=== PATIENT | male | born 1970 | race Caucasian/White ===

== ENCOUNTER 2022-11-18 19:12 | Emergency (ER) | payer OTHER, SELFPAY ==
[2022-11-18 19:16] VITALS: BP 134/96; PULSE 88; RESP 16; TEMP 36.6; O2SAT 97; BMI 28.1
--- NOTE | 2022-11-18 19:41 | ED.EYEPROB1 ---
HPI - Eye Problem General Chief complaint: Eye Problems Stated complaint: Foreign Body in Eye Time Seen by Provider: 11/18/22 19:40 Source: patient Mode of arrival: walk-in Limitations: no limitations History of Present Illness HPI Narrative: Patient is a 51-year-old male who presents to the emergency department for the evaluation of irritation in the left eye. He states approximately 1-1/2-2 hours ago, he got sawdust in his eye. They irrigated the eye but he still has a sensation of irritation. No visual loss. He does not wear contact lenses. states after irrigating his eye, he developed redness to the left outer aspect of the left eye. No drainage from the left eye. Related Data Previous Rx's Medication Instructions Recorded diclofenac sodium 0.1 % eye drops 2 drp ophthalmic (eye) Q6H PRN eye 11/18/22 pain 2 days #2.5 mL Allergies Allergy/AdvReac Type Severity Reaction Status Date / Time No Known Drug Allergies Allergy Verified 11/18/22 19:20 Review of Systems ROS Constitutional Denies: fever or chills Eyes Reports: eye discomfort; Denies: change in vision or eye discharge Cardiovascular Denies: chest pain Respiratory Denies: shortness of breath Gastrointestinal Denies: nausea or vomiting Musculoskeletal Denies: back pain Integumentary/Breast Denies: rash Neurological Denies: headache Exam Narrative Exam Narrative: Gen.: Awake, alert, in no distress Head: Normocephalic, atraumatic ENT: Moist mucous membranes Eye: Normal extraocular motion, pupils were equal round and reactive to light, the patient had no pain with extraocular motion. The patient had tetracaine applied to the bilateral eyes, fluorescein dye was instilled. There is a subconjunctival hemorrhage on the lateral aspect of the left eye, no extension over the iris. The patient had exam with Wood's lamp that did show evidence of uptake at the 6 o'clock position of the cornea. The patient had no involvement over the pupil. There was evidence of conjunctival injection. The patient's eyelid was everted and there was no evidence of foreign body. The patient had no swelling of the upper/lower eyelid. No evidence of hyphema, dendritic lesion or Yassine sign. No corneal ulcerations. No evidence of preseptal cellulitis or orbital cellulitis Respiratory: No respiratory distress Extremities: Moves extremities equally, no injuries noted Psych: Normal mood and affect Neuro: No focal neuro deficit Skin: Warm, dry, intact Constitutional Vital Signs, click to edit/add: Last Vital Signs Temp 97.8 F 11/18/22 19:16 Pulse 88 11/18/22 19:16 Resp 16 11/18/22 19:16 BP 134/96 H 11/18/22 19:16 Pulse Ox 97 11/18/22 19:16 O2 Del Method Room Air 11/18/22 19:16 Course Vital Signs Vital signs: Vital Signs Temperature 97.8 F 11/18/22 19:16 Pulse Rate 88 11/18/22 19:16 Respiratory Rate 16 11/18/22 19:16 Blood Pressure 134/96 H 11/18/22 19:16 Pulse Oximetry 97 11/18/22 19:16 Oxygen Delivery Method Room Air 11/18/22 19:16 Temperature 97.8 F 11/18/22 19:16 Pulse Rate 88 11/18/22 19:16 Respiratory Rate 16 11/18/22 19:16 Blood Pressure 134/96 H 11/18/22 19:16 Pulse Oximetry 97 11/18/22 19:16 Oxygen Delivery Method Room Air 11/18/22 19:16 MDM - Eye Problem MDM Narrative Medical decision making narrative: Patient with irritation of the left eye, no evidence of foreign body. Tetracaine applied with fluorescein, Webb lamp shows no evidence of embedded foreign body or corneal ulcers. Patient treated with tobramycin eyedrops as well as Voltaren eyedrops for pain. Follow-up with ophthalmology and return to the Emergency Room if symptoms change or worsen. Medical Records Attestation: I reviewed the patient's medical records. Discharge Plan Discharge Chief Complaint: Eye Problems Clinical Impression: Subconjunctival hemorrhage, Corneal abrasion Patient Disposition: Home, Self-Care Time of Disposition Decision: 19:42 Condition: Good Prescriptions / Home Meds: New diclofenac sodium 0.1 % drops 2 drp ophthalmic (eye) Q6H PRN (Reason: eye pain) 2 Days Qty: 2.5 0RF Instructions: Subconjunctival Hemorrhage (ED), Corneal Abrasion (ED) Additional Instructions: Tobramycin eye drops: 2 drops in the left eye, every 6 hours for [address] Méndez/Aditya: Stand Alone Forms: Portal Instructions Referrals: RIK OCONNOR [Primary Care Provider] - 1 week Discharge Date/Time: 11/18/22 20:13
[2022-11-18] MEDS: TOBRAMYCIN 0.3% OP SOL 100 DROP/5 ML BOTTLE OP (20:03)
[2022-11-18] MEDS: FLUORESCEIN SODIUM 1 MG STRIP OP (20:04)
== END 2022-11-18 20:13 | disposition home or self-care (01) ==
PROVIDERS: Emergency Provider Internal Medicine; PCP Family Medicine
DX: H11.32 Conjunctival hemorrhage, left eye (principal); S05.02XA Injury of conjunctiva and corneal abrasion without foreign body, left eye, initial encounter; X58.XXXA Exposure to other specified factors, initial encounter
CPT/HCPCS: 99283

== ENCOUNTER 2023-10-03 17:18 | Emergency (ER) | payer OTHER, SELFPAY ==
[2023-10-03 17:23] VITALS: BP 133/85; PULSE 86; TEMP 37.2; O2SAT 97; BMI 28.9
--- NOTE | 2023-10-03 17:35 | ED.WOUNDLAC1 ---
HPI - Wound/Laceration General Chief Complaint: Wound/Laceration Stated Complaint: Wound Check Time Seen by Provider: 10/03/23 17:25 Source: patient Mode of arrival: walk-in Limitations: no limitations History of Present Illness HPI narrative: 52-year-old male presents for a wound to his left lower leg laterally. It happened 8 days ago and he is concerned because there is some swelling as well as some redness around the wound. It happened when a piece of aluminum fell over and it scraped down the outside of his left lower leg. He has not had a tetanus shot in a long time, cannot recall when. There is been no purulent drainage. Related Data Previous Rx's ?Medication ?Instructions ?Recorded diclofenac sodium 0.1 % eye drops 2 drp ophthalmic (eye) Q6H PRN eye 11/18/22 pain 2 days #2.5 mL cephalexin 500 mg capsule 500 mg PO QID 10 days #40 caps 10/03/23 Allergies Allergy/AdvReac Type Severity Reaction Status Date / Time No Known Drug Allergies Allergy Verified 11/18/22 19:20 Review of Systems ROS Narrative A ten point review of systems is negative except as noted above. Exam Narrative Exam Narrative: Nurses note and vital signs reviewed and patient is not hypoxic. General: The patient appears well and in no apparent distress. Patient is resting comfortably on cart. Skin: Warm, dry, no pallor noted. There is no rash noted. Head: Normocephalic, atraumatic Eye: Normal conjunctiva, no drainage Ears, Nose, Mouth, and Throat: oral mucosa is moist. Nares patent. Cardiovascular: Regular Rate and Rhythm Respiratory: Patient is in no distress, no accessory muscle use Back: non-tender GI: Soft and nontender Musculoskeletal: The lateral aspect of his left lower leg has a wide abrasion nearly the entire length of the lower leg. There is surrounding erythema. There is a small amount of bruising just below the lateral malleolus. Neurological: A&O normal speech Psychiatric: Cooperative Constitutional Vital Signs, click to edit/add: Last Vital Signs Temp 98.9 F 10/03/23 17:23 Pulse 86 10/03/23 17:23 Resp 18 10/03/23 17:23 BP 133/85 10/03/23 17:23 Pulse Ox 97 10/03/23 17:23 O2 Del Method Room Air 10/03/23 17:23 Course Vital Signs Vital signs: Vital Signs Temperature 98.9 F 10/03/23 17:23 Pulse Rate 86 10/03/23 17:23 Respiratory Rate 18 10/03/23 17:23 Blood Pressure 133/85 10/03/23 17:23 Pulse Oximetry 97 10/03/23 17:23 Oxygen Delivery Method Room Air 10/03/23 17:23 Temperature 98.9 F 10/03/23 17:23 Pulse Rate 86 10/03/23 17:23 Respiratory Rate 18 10/03/23 17:23 Blood Pressure 133/85 10/03/23 17:23 Pulse Oximetry 97 10/03/23 17:23 Oxygen Delivery Method Room Air 10/03/23 17:23 MDM - Wound/Laceration MDM Narrative Medical decision making narrative: Tetanus is updated. He will be placed on Keflex. Treatment diagnosis and follow-up were discussed with the patient. Differential Diagnosis Differential diagnosis: Likely laceration, abrasion and other (Cellulitis) Discharge Plan Discharge Stand Alone Forms: Portal Instructions Chief Complaint: Wound/Laceration Clinical Impression: Left leg cellulitis Patient Disposition: Home, Self-Care Time of Disposition Decision: 17:34 Condition: Good Mode of Transportation: Private Vehicle Prescriptions / Home Meds: New cephalexin 500 mg capsule 500 mg PO QID 10 Days Qty: 40 0RF No Action diclofenac sodium 0.1 % drops 2 drp ophthalmic (eye) Q6H PRN (Reason: eye pain) 2 Days Qty: 2.5 0RF Print Language: Bengali Instructions: Cellulitis (ED) Additional Instructions: Elevate leg as much as possible Referrals: Jluis Velazco MD [Primary Care Provider] - 1 week
[2023-10-03] MEDS: ADACEL DIPH,PERTUSS(ACELL),TET VAC/PF 0.5 ML ADULT SYRINGE IM (17:43)
[2023-10-03] MEDS: CEPHALEXIN 500 MG CAPSULE PO (17:43)
== END 2023-10-03 17:54 | disposition home or self-care (01) ==
PROVIDERS: Emergency Provider Emergency Medicine; PCP Family Medicine
DX: L03.116 Cellulitis of left lower limb (principal); Z23 Encounter for immunization
CPT/HCPCS: 90471; 90715; 99283